=== PATIENT | female | born 1975 ===

== ENCOUNTER → 2022-12-31 | Outpatient (CLI) | payer OTHER | END | disposition home or self-care (01) | LOC: MRI 07:20 | PROVIDERS: ATTEND Specialist | DX: C54.1 Malignant neoplasm of endometrium (principal) | CPT/HCPCS: 72197; Q9965 ==

== ENCOUNTER 2023-01-07 07:23 | Outpatient (CLI) | payer OTHER | END 2023-01-07 07:42 | disposition home or self-care (01) | LOC: TOM 07:23 | PROVIDERS: ATTEND Specialist | DX: R10.84 Generalized abdominal pain (principal) | CPT/HCPCS: 74177; Q9965 ==

== ENCOUNTER 2023-09-25 09:55 | Outpatient (CLI) | payer OTHER | END 2023-09-25 10:01 | disposition home or self-care (01) | LOC: SONOGRAMA 09:55 | PROVIDERS: ATTEND Obstetrics & Gynecology | DX: R10.2 Pelvic and perineal pain (principal) ==